=== PATIENT | female | born 2005 | race Caucasian/White ===

== ENCOUNTER 2025-01-06 17:03 | Emergency (ER) | payer BC, SELFPAY ==
--- NOTE | 2025-01-06 | ECG_ITS ---
Test Reason : CHES PAIN Blood Pressure : */* mmHG Vent. Rate : 85 BPM Atrial Rate : 85 BPM P-R Int : 122 ms QRS Dur : 72 ms QT Int : 356 ms P-R-T Axes : 78 89 71 degrees QTcB Int : 423 ms Normal sinus rhythm with sinus arrhythmia Normal ECG No previous ECGs available Referred By: Generic ED Physician Electronically Signed By: Ilan Zaragoza
--- NOTE | ~2025-01-06 | XR_ITS ---
CLINICAL HISTORY: chest xray 1 view chest x-ray Comparison: None provided Findings: The lungs are clear. Heart size is normal. No acute fracture. IMPRESSION: 1. No acute findings. This document has been electronically signed by: Kristina Horta MD on 01/06/2025 19:15:04
[2025-01-06 17:15] VITALS: BP 118/65; PULSE 93; RESP 20; TEMP 37; O2SAT 99; BMI 19.6
--- NOTE | 2025-01-06 17:21 | ED.CHESTPAIN ---
HPI - Chest Pain General Chief Complaint: Chest Pain Stated Complaint: chest pain/elevated heart rate Time Seen by Provider: 01/06/25 19:07 Source: patient Mode of arrival: ambulatory Limitations: no limitations History of Present Illness ED Provider: DR. Coughlin HPI narrative: 19-year-old female came in for evaluation of chest pain started since 05:00, pain started as palpitation and heart racing then turn into pressure in the mid chest with no radiation, patient felt slightly short of breath, history of anxiety patient stated nothing happened to trigger her anxiety, no chest trauma, no recent travel, no lower extremity swelling or tenderness, no history of PE or DVT, no cardiac family history, no history of young in the family, pain and palpitation has resolved for the last 2-3 hours, patient had similar episode in the past and was related to her anxiety. Otherwise no fever, no chills, no coughing, no shortness of breath. Related Data Allergies Allergy/AdvReac Type Severity Reaction Status Date / Time No Known Allergies Allergy Verified 01/06/25 17:15 Review of Systems Review of Systems: All other systems are reviewed and are negative Constitutional: Reports as per HPI and Reports no additional constitutional complaints Eyes: Reports as per HPI and Reports no additional eye complaints Reports system reviewed and no additional complaints, except as documented Cardiovascular: Reports as per HPI and Reports no additional cardiovascular complaints Respiratory: Reports as per HPI and Reports no additional respiratory complaints Gastrointestinal: Reports as per HPI and Reports no additional gastrointestinal complaints Genitourinary: Reports no additional female genitourinary complaints Musculoskeletal: Reports no additional musculoskeletal complaints Skin/Breast: Reports system reviewed and no additional complaints, except as docu Psychiatric: Reports no additional psychiatric complaints Endocrine: Reports no additional endocrine complaints Hematologic/Lymphatic: Reports no additional hematologic/lymphatic complaints Allergic/Immunologic: Reports no additional allergic/immunologic complaints Reports system reviewed and no additional complaints, except as documented and Reports Abnormal speech present [facility] Social History Social History Smoked in Last 30 Days: Yes Use of substances other than those prescribed or required for medical reasons: No Advance Directives: No Advance Directives Information Provided: No Patient : No ( CONTROL) Physical Exam Vital Signs: Vital Signs: Last Vital Signs Temp 97.2 F 01/06/25 20:51 Pulse 92 01/06/25 20:51 Resp 18 01/06/25 20:51 BP 113/54 L 01/06/25 20:51 Pulse Ox 97 01/06/25 20:51 O2 Del Method Room Air 01/06/25 20:51 BMI result Body Mass Index 19.6 Vital signs have been reviewed and appear to be correct. Blood pressure elevated. Heart rate normal. Respiratory rate normal. Temperature normal. Oxygen saturation normal. Appearance: Alert. Oriented X3. No acute distress. Head: Normal external exam. Normocephalic. Atraumatic. No Soliz signs noted. No raccoon eyes noted Eyes: PERRLA. EOMI. Conjunctiva and sclera normal. Eyelids normal. ENT: TM's Normal. Pharynx normal. Uvula midline. Moist mucous membranes. No trismus noted. No drooling noted. No muffled voice noted. Neck: Normal inspection. Neck supple. FROM. No adenopathy. Thyroid Normal. No meningeal signs. No neck mass noted. CVS: Normal heart rate and rhythm. Heart sound normal. No murmurs noted. Pulses normal throughout. Respiratory: No respiratory distress. Painless inspiration. Breath sounds normal. No wheezes/rales/rhonchi noted. Chest nontender. No accessory muscle usage noted or decreased air movement noted. Abdomen: Soft and nontender. Bowel sounds normal in all 4 quadrants. No distention noted. No organomegaly noted. No visible injury noted. Back: No CVA tenderness. Full range of motion noted. Skin: Skin warm and dry. Normal skin color. Normal skin turgor. No rashes/lesions/lacerations noted. Extremities: No lower extremity edema. Extremities exhibit normal range of motion. Extremities nontender. Neuro: Oriented X 3. Cranial nerve exam: II-XII are grossly intact No motor deficit. No sensory deficit. Reflexes normal. Course Course Course Narrative: RME; 19-year-old female presents to ED for sternal chest pain since last night for like heart racing. Patient has history of anxiety came to the ED to be evaluated. Patient denies any recent long travel recent surgery. Lungs are clear. EKG chest x-ray ordered. Reevaluation(s) Reevaluation #1: Patient feels better, given the agent history patient at low risk for ACS or pulmonary embolism with negative troponin and D-dimer, chest x-ray is unremarkable for acute pathology. Will reassure the patient and discharge. Time: 20:30 Medical Decision Making Differential Diagnosis Differential Diagnoses: The differential diagnosis associated with the presentation includes ( Pulmonary embolism, pneumonia, pneumothorax, pleural effusion, ACS, electrolyte derangement, anxiety, anemia.) Admission/Observation Consideration of admission/observation: Escalation of care including admission/observation considered Lab Data MDM Lab Attestation statement: I reviewed the patient's lab results. 01/06/25 17:28 01/06/25 17:28 Labs: Lab Results 01/06/25 Range/Units 17:28 WBC 12.3 H (4.8-10.8) X10*3/uL RBC 4.46 (4.20-5.50) X10*6/uL Hgb 13.4 (12.0-16.0) g/dl Hct 39.1 (37.0-47.0) % MCV 87.7 (80.0-98.0) fL MCH 30.0 (27.0-33.0) pg MCHC 34.3 (31.0-35.0) g/dl RDW 12.0 (11.0-16.0) % Plt Count 270 (160-400) X10*3/uL MPV 9.3 L (9.4-12.3) fL Immature Gran % (Auto) 0.2 (0.0-0.4) % Neut % (Auto) 79.9 H (45-73) % Lymph % (Auto) 14.5 L (20-40) % [place] % (Auto) 4.2 (2-11) % Eos % (Auto) 0.8 (0-4) % Baso % (Auto) 0.4 (0-2) % Lymph # (Auto) 1.8 (1.2-4.9) X10*3/uL [place] # (Auto) 0.5 (0.1-1.2) X10*3/uL Eos # (Auto) 0.1 (0.0-0.4) X10*3/uL Baso # (Auto) 0.1 (0.0-0.2) X10*3/uL Abs Immat Gran (auto) 0.03 (0.00-0.03) X10*3/uL Absolute Neuts (auto) 9.8 H (2.0-8.3) x10*3/uL Absolute Nucleated RBC 0.000 (0.0-0.012) X10*3/uL Nucleated RBC % (auto) 0.0 (0.0-0.2) /100WBC PT 12.0 (10.9-12.4) SEC INR 1.0 (0.9-1.1) APTT 27.9 (26.7-34.1) SEC D-Dimer High Sensitivty < 150 NG/ML Sodium 144 (135-145) mmol/L Potassium 3.6 (3.3-5.1) mmol/L Chloride 108 (96-108) mmol/L Carbon Dioxide 25 (22-29) mmol/L Anion Gap 15 (12-20) BUN 9 (9-16) mg/dL Creatinine 0.87 (0.5-1.4) mg/dL Estim Creat Clear Calc 88.9 Estimated GFR > 60 Random Glucose 94 (60-115) mg/dL Calcium 9.3 (8.4-10.2) mg/dL Total Bilirubin 0.6 (0.0-1.0) mg/dL AST 20 (5-31) U/L ALT 16 (0-31) U/L Alkaline Phosphatase 57 (39-117) U/L Troponin I High Sens < 2.7 (<3.5-17.0) ng/L Total Protein 7.6 (6.5-8.0) g/dL Albumin 5.1 H (3.5-5.0) g/dL Beta HCG, Quant < 2 mIU/mL Independent Interpretation I performed an independent interpretation of an: EKG ( Normal sinus rhythm at 85 beats per minutes, normal intervals, no ST-T changes.) and Plain X-Ray ( Chest: No acute intrathoracic pathology.) Radiology Impression Discussion of test interpretation with radiology: I have reviewed the radiologist's reading. Discharge Plan Discharge Clinical Impression: Atypical chest pain, Anxiety Patient Disposition: Home, Self-Care Instructions: Chest Pain (DC), Anxiety (ED) Stand Alone Forms: Work/School Release Interventions: ED Discharge Assessment Last Done: 01/06/25 20:51 Discharge Date/Time: 01/06/25 20:52 Print Language: Danish
[2025-01-06 17:33] LABS: MANUAL DIFF FLAG NO
[2025-01-06 17:34] LABS: Hematocrit 39.1 % (37.0-47.0); Hemoglobin 13.4 g/dl (12.0-16.0); Imm Gran Abs Auto 0.03 X10*3/uL (0.00-0.03); Imm Gran Pct Auto 0.2 % (0.0-0.4); Lymphocytes Absolute Auto 1.8 X10*3/uL (1.2-4.9); Mean Corpuscular HGB Conc 34.3 g/dl (31.0-35.0); Mean Corpuscular Hemoglobin 30.0 pg (27.0-33.0); Mean Corpuscular Volume 87.7 fL (80.0-98.0); NRBC Abs Auto 0.000 X10*3/uL (0.0-0.012); NRBC Pct Auto 0.0 /100WBC (0.0-0.2); Platelet Count 270 X10*3/uL (160-400); Red Blood Count 4.46 X10*6/uL (4.20-5.50); White Blood Count 12.3 X10*3/uL (4.8-10.8)
[2025-01-06 17:48] VITALS: BP 118/65; PULSE 90; RESP 18; TEMP 37.2; O2SAT 99
[2025-01-06 17:48] LABS: INTERNATIONAL NORM RATIO 1.0 (0.9-1.1); Prothrombin Time 12.0 SEC (10.9-12.4)
[2025-01-06 17:51] LABS: Partial Thromboplastin Time 27.9 SEC (26.7-34.1)
[2025-01-06 17:54] LABS: Alanine Aminotransferase 16 U/L (0-31); Albumin Level 5.1 g/dL (3.5-5.0); Alkaline Phosphatase 57 U/L (39-117); Anion Gap 15 (12-20); Aspartate Amino Transferase 20 U/L (5-31); Blood Urea Nitrogen 9 mg/dL (9-16); Calcium 9.3 mg/dL (8.4-10.2); Carbon Dioxide 25 mmol/L (22-29); Chloride 108 mmol/L (96-108); Creatinine Clr Calc Pharmacy 88.9; Estimated Glomerular Filt Rate > 60; Potassium 3.6 mmol/L (3.3-5.1); Sodium 144 mmol/L (135-145); Total Protein 7.6 g/dL (6.5-8.0)
--- NOTE | 2025-01-06 17:59 | PC.NURSE ---
PT experiencing chest pain since 0500 today. Fluctuates, worse while lying prone, nothing in particular helps. Some tingling in left arm earlier, this has resolved. 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 Vitals WNL on RA. Nausea and vomiting earlier today. No apparent distress.
[2025-01-06 18:07] LABS: Troponin-I High Sensitivity < 2.7 ng/L (<3.5-17.0)
[2025-01-06 19:26] LABS: D Dimer High Sensitivity < 150 NG/ML
[2025-01-06 20:24] VITALS: BP 113/54; PULSE 92; RESP 18; TEMP 36.2; O2SAT 97
[2025-01-06 20:51] VITALS: BP 113/54; PULSE 92; RESP 18; TEMP 36.2; O2SAT 97
== END 2025-01-06 20:52 | disposition home or self-care (01) ==
PROVIDERS: Physician Assistant; Emergency Provider Emergency Medicine
DX: R07.89 Other chest pain (principal); F41.9 Anxiety disorder, unspecified
CPT/HCPCS: 36415; 71045; 80053; 84484; 84702; 85025; 85379; 85610; 85730; 93005; 99283; 99285

== ENCOUNTER → 2025-01-06 17:13 | Outpatient (BNV) | payer BC, SELFPAY | PROVIDERS: Emergency Provider Emergency Medicine; Visit Provider Internal Medicine Cardiovascular Disease | DX: R07.2 Precordial pain (principal) | CPT/HCPCS: 93010 ==

== ENCOUNTER → 2025-01-06 17:22 | Outpatient (BNV) | payer BC, SELFPAY | PROVIDERS: Emergency Provider Emergency Medicine; Visit Provider Student in an Organized Health Care Education/Training Program | DX: R07.89 Other chest pain (principal) | CPT/HCPCS: 71045 ==